=== PATIENT | female | born 1965 | race African-American/Black ===

== ENCOUNTER 2018-11-01 13:00 | Emergency (ER) | payer SELFPAY ==
[2018-11-01] MEDS ORDERED: HYDROCODONE/ACETAMINOPHEN 5-325 MG TABLET PO ONE (14:33)
[2018-11-01] MEDS ORDERED: KETOROLAC TROMETHAMINE 60 MG/2 ML SDV IM ONE (14:33)
--- NOTE | 2018-11-01 14:35 | ER Document Report ---
ED Oral Problem - General Chief Complaint: Toothache Stated Complaint: TOOTHACHE Time Seen by Provider: 11/01/18 14:25 Mode of Arrival: Ambulatory Information source: Patient Notes: Patient is well-nourished well-developed morbidly obese 53-year-old female comes emergency room complaining of left lower dental pain. Patient states started approximately 1 week ago and is progressively gotten worse. She stated that originally started on the right side about 2 weeks ago that went away by her gargling but the left side has gotten bad starting a week ago and has started swelling on the outside of the face as of late last night. Patient states that the pain is going up into her left ear and jaw area. She denies any other medical problems with the exception of GERD. And arthritis. She denies smoking. She is a [id number] mother. TRAVEL OUTSIDE OF THE [place] IN LAST 30 DAYS: No - HPI Patient complains to provider of: Jaw pain, Swelling of face Onset: Other - 1 week Onset: Gradual Quality of pain: Sharp, Throbbing Severity: Moderate Pain Level: 3 Context: Fractured tooth Swollen jaw/face: Mild Associated symptoms: Dental decay Worsened by: Heat Relieved by: Nothing Similar symptoms previously: Yes Recently seen / treated by doctor/dentist: No - Related Data Allergies/Adverse Reactions: No Known Allergies Allergy (Unverified 11/01/18 13:04) Past Medical History - General Information source: Patient - Social History Smoking Status: Never Smoker Cigarette use (# per day): No Chew tobacco use (# tins/day): No Smoking Education Provided: No Frequency of alcohol use: None Drug Abuse: None Lives with: Family Family History: Reviewed & Not Pertinent Patient has suicidal ideation: No Patient has homicidal ideation: No Renal/ Medical History: Denies: Hx Peritoneal Dialysis Review of Systems - Review of Systems Constitutional: No symptoms reported EENT: See HPI, Dental problem Cardiovascular: No symptoms reported Respiratory: No symptoms reported Gastrointestinal: No symptoms reported Genitourinary: No symptoms reported Female Genitourinary: No symptoms reported Musculoskeletal: No symptoms reported Skin: No symptoms reported Hematologic/Lymphatic: No symptoms reported Neurological/Psychological: No symptoms reported -: Yes All other systems reviewed and negative Physical Exam - Vital signs Vitals: Temp Pulse Resp BP Pulse Ox 98.9 F 83 18 139/89 H 97 11/01/18 13:04 11/01/18 13:04 11/01/18 13:04 11/01/18 13:04 11/01/18 13:04 Interpretation: Hypertensive - Notes Notes: PHYSICAL EXAMINATION: GENERAL: Patient is a well-nourished well-developed 53-year-old female who is in no apparent distress but is in obvious pain and discomfort. HEAD: normocephalic examination of patient's left lower jaw area externally shows there to be mild to moderate amount of swelling extending from the mid mandible left side to almost the angle of the mandible. There is some mild temperature change from the right to the left. With the left being more warm. There is no fluctuance that is felt in the area. But is very tender to palpate. This more of a tissue that is inflamed. There is nothing for an I&D at this time. EYES: Pupils equal round and reactive to light, extraocular movements intact, conjunctiva are normal. ENT: Examination patient's oral cavity shows a horrendous dental problem. Patient has teeth that are multiple states of decay as multiple states of fracture and the area in question is the left lower there is the second from the back molar that is at the gumline that is very erythematous there is actually some pus that appears to come out when you apply pressure to the area. Her entire mouth looks like this. NECK: Normal range of motion, supple without lymphadenopathy LUNGS: Breath sounds clear to auscultation bilaterally and equal. No wheezes rales or rhonchi. HEART: Regular rate and rhythm without murmurs Female : deferred Musculoskeletal: Normal range of motion, no pitting or edema. No cyanosis. NEUROLOGICAL: Normal speech, normal gait. Normal sensory, motor exams PSYCH: Normal mood, normal affect. SKIN: Warm, Dry, normal turgor, no rashes or lesions noted. Course - Re-evaluation Re-evalutation: 11/01/18 14:42 At this time patient does not need any IV antibiotics or could be having a CT done. The area is not large enough and it is not causing a major problem for or involvement with airway. At this time we will treat her with oral antibiotics. I will give her dose of pain medication here and then put her on clindamycin I have given her the good Rx card information and I will hit her with a small steroid as well for taper. I am giving her some Toradol here to help work on th e inflammation. Patient understands we cannot fix this problem we are not dentists and that she should see somebody as soon as possible. I will give her the name of the [facility] where if she needs to they have some options of dental referrals. I did look patient up on the [facility] aware drug line and she does not have any hits as far as narcotics go on a regular basis. She is only had a few pain medications given O over the past year and therefore I do not believe she is at risk and given her a little bit of pain medication for short course and treatment of this dental pain. 11/01/18 21:02 11/01/18 21:03 - Vital Signs Vital signs: Temp Pulse Resp BP Pulse Ox 99.0 F 83 18 148/89 H 98 11/01/18 15:33 11/01/18 15:33 11/01/18 15:33 11/01/18 15:33 11/01/18 15:33 Discharge - Discharge Clinical Impression: Dental infection Disposition: HOME, SELF-CARE Instructions: [facility], Clindamycin ([facility]), Oral Narcotic Medication ([facility]), Toothache ([facility]) Additional Instructions: TOOTHACHE: Your pain is due to dental decay. The tooth must be repaired in order for you to feel better. You will, therefore, be referred to a dentist. We do not have dentists on the staff at [facility]. Severe swelling or drainage around a tooth usually means a dental abscess. This also requires evaluation and treatment by the dentist, but antibiotics may be prescribed while awaiting dental treatment. You should be rechecked immediately if you develop major swelling of the face, increasing pain, a lump in the jaw or gums, headache, difficulty swallowing, or fever. ORAL NARCOTIC MEDICATION: You have been given a prescription for pain control. This medication is a narcotic. It's best taken with food, as nausea can result if taken on an empty stomach. Don't operate machinery or drive within six hours of taking this medication. Do not combine this medicine with alcohol, or with any medication which can cause sedation (such as cold tablets or sleeping pills) unless you get permission from the physician. Narcotics tend to cause constipation. If possible, drink plenty of fluids and eat a diet high in fiber and fruits. Please be aware that prescription narcotics also have the potential for abuse. People become addicted to these medications because of the general sense of wellbeing that they induce. This feeling along with a significant reduction in tension, anxiety, and aggression provides a stimulating seductive quality to these drugs. Once your pain is under control, we encourage you to discard your unused narcotics. CLINDAMYCIN: You have been given a prescription for the antibiotic clindamycin. It is often prescribed for infections in the mouth, such as dental infections or abscesses, and for skin infections due to MRSA. It's important that you take all the medication, unless instructed otherwise by your physician. Failure to complete the entire course can result in relapse of your condition. Common side effects of antibiotics include nausea, intestinal cramping, or diarrhea. Women may develop vaginal yeast infections, and babies can get yeast (thrush) in the mouth following the use of antibiotics. Contact your physician if you develop significant side effects from this medication. Allergy to this antibiotic can result in hives, wheezing, faintness, or itching. If symptoms of allergy occur, stop the medication and call the doctor. FOLLOW-UP CARE: You have been referred for follow-up care to the dentists listed below. Call the dentists office for an appointment as you were instructed or within the next two days. If you experience worsening or a significant change in your symptoms, notify the physician immediately or return to the Emergency Department at any time for re-evaluation. [facility] [address] [place], [place] Thursday mornings, by appointment [facility] [address] [place] [address] [facility] [address] [facility] [address] [facility] [address] [facility]. [email or web address] [facility] [address] [place] [address] Thursday- 8:00am to 5:00 pm Will see patients from other peoples hospital. Charges based on income and family size and accepts Medicare, Medicaid, and Insurances Will pull molars [facility] [address] [address] Hours of Operation 8:00 am - 4:30 pm weekdays The following dental offices accept Medicaid: [facility] Dr. Goode Dr. Camejo Dr. Sethi Dr. Gaston Ga Santamaria, [place], and Lise oral surgery Dr. Villasenor ([place]) Dr. Gerardo ([place]) [facility] Drs. Pate and Chaz ([place]) Dr. Montiel ([place]) [facility] Dr. Vasquez ([place]) Drs. Myles and ([place]) Medicaid Care Line You have a dental abscess that you need to keep close eye on. I am placing you on an antibiotic that I have informed you to use your good Rx card yellow card I gave you. [facility] is the cheapest at $27 followed by [facility] at [facility] and [facility] at $37. I am also giving a little bit of pain medication to get you through the next couple of days but you have to see a dentist we cannot do this anymore. I gave him the names of a dentist in the local area that you may contact also the [facility] offer some assistance with this as well so he may contact them. Should you have any concerns or problems should this get more out of hand more swelling more pain you have difficulty breathing return to ER at once for recheck. Prescriptions: Clindamycin HCl 300 mg PO Q6 #40 capsule Hydrocodone/Acetaminophen [Carey 7.5-325 Tablet] 1 each PO Q4 PRN #15 tablet PRN Reason: Ibuprofen [Motrin 800 mg Tablet] 800 mg PO Q8H PRN #30 tab PRN Reason: Forms: Elevated Blood Pressure Referrals: [facility] [NO [facility]AL MD] - Follow up as needed
[2018-11-01 15:34] VITALS: BP 148/89
== END 2018-11-01 15:34 | disposition home or self-care (01) ==
LOC: ER 13:00
DX: K04.7 Periapical abscess without sinus (principal); K02.9 Dental caries, unspecified; K08.89 Other specified disorders of teeth and supporting structures; E66.01 Morbid (severe) obesity due to excess calories
CPT/HCPCS: 99282; 96372; J1885